=== PATIENT | male | born 1965 | race Caucasian/White ===

== ENCOUNTER 2020-05-25 18:35 | Inpatient (IN) | payer SELFPAY ==
[~2020-05-25] VITALS: Ht 170.2 cm; Wt 95.8 kg
[2020-05-25 21:10] LABS: BASOPHIL % 0.1 % (0-2); RED CELL DISTRIBUTION WIDTH 14.3 % (11.5-14.5)
[2020-05-25 21:15] LABS: PLATELET COUNT 599 x10^3mcL (130-400)
[2020-05-25 21:17] LABS: CALCIUM 8.4 mg/dL (8.5-10.1); CARBON DIOXIDE 21.4 mmol/L (21-32); CHLORIDE SERUM 104 mmol/L (98-107); GFR1 > 60 mL/min; GLUCOSE SERUM 144 mg/dL (74-106); POTASSIUM SERUM 3.7 mmol/L (3.5-5.1); SODIUM SERUM 140 mmol/L (136-145)
[2020-05-25 21:22] LABS: ALKALINE PHOSPHATASE 118 U/L (46-116); ALT/SGPT 108 U/L (16-63); AST/SGOT 71 U/L (15-37); BILIRUBIN TOTAL 0.6 mg/dL (0.20-1.00); TOTAL PROTEIN, SERUM 7.1 g/dL (6.4-8.2)
[2020-05-25 21:23] LABS: ALBUMIN 2.2 g/dL (3.4-5.0)
[2020-05-25 21:24] LABS: C REACTIVE PROTEIN 17.7 mg/dL (<=0.9); LACTIC DEHYDROGENASE (LDH) 678 U/L (100-190)
[2020-05-25 21:41] LABS: MAGNESIUM 1.8 mg/dL (1.8-2.4); PHOSPHOROUS 3.4 mg/dL (2.5-4.9)
[2020-05-25 21:42] LABS: CHOLESTEROL/HDL RATIO 9.5; T3 TOTAL 1.27 ng/mL
[2020-05-25 21:57] LABS: FREE T4 1.64 ng/dL (0.76-1.46); FREE THYROXINE INDEX 3.6 ug/dL (1.4-4.5); T4(THYROXINE) 9.8 ug/dL (4.7-13.3)
[2020-05-25 23:00] LABS: UA SPECIFIC GRAVITY >=1.030 (1.005-1.035); microscopic required? YES; urine erythrocyte NEGATIVE (NEGATIVE)
[2020-05-25 23:24] LABS: AMPHETAMINE QUAL UR NONE DETECTED (See below)
[2020-05-26] VITALS (7 sets, daily range): BP systolic 110–152; BP diastolic 69–88
[2020-05-26 07:52] LABS: BASOPHIL % 0.3 % (0-2)
[2020-05-26 08:15] LABS: CALCIUM 8.7 mg/dL (8.5-10.1); CARBON DIOXIDE 22.4 mmol/L (21-32); CHLORIDE SERUM 107 mmol/L (98-107); CREATININE SERUM 0.8 mg/dL (0.7-1.3); GFR1 > 60 mL/min; GLUCOSE SERUM 104 mg/dL (74-106); MAGNESIUM 2.1 mg/dL (1.8-2.4); SODIUM SERUM 141 mmol/L (136-145)
[2020-05-26 08:16] LABS: RED CELL DISTRIBUTION WIDTH 14.6 % (11.5-14.5)
[2020-05-26 08:22] LABS: C REACTIVE PROTEIN 14.7 mg/dL (<=0.9); PLATELET COUNT 607 x10^3mcL (130-400)
[2020-05-27 06:09] VITALS: BP 123/75
[2020-05-27 07:27] LABS: BASOPHIL % 0.4 % (0-2)
[2020-05-27 07:41] LABS: CALCIUM 8.7 mg/dL (8.5-10.1); CARBON DIOXIDE 24.9 mmol/L (21-32); CHLORIDE SERUM 106 mmol/L (98-107); GFR1 > 60 mL/min; GLUCOSE SERUM 93 mg/dL (74-106); MAGNESIUM 2.1 mg/dL (1.8-2.4); PHOSPHOROUS 4.3 mg/dL (2.5-4.9); POTASSIUM SERUM 4.3 mmol/L (3.5-5.1); SODIUM SERUM 142 mmol/L (136-145)
[2020-05-27 08:31] LABS: PLATELET COUNT 631 x10^3mcL (130-400); RED CELL DISTRIBUTION WIDTH 14.7 % (11.5-14.5)
[2020-05-27 09:02] VITALS: BP 143/85
[2020-05-27 12:18] VITALS: BP 143/88
[2020-05-27 17:01] VITALS: BP 133/80
[2020-05-27 22:17] VITALS: BP 126/68
[2020-05-28 05:59] VITALS: BP 111/69
[2020-05-28 08:03] LABS: C REACTIVE PROTEIN 6.1 mg/dL (<=0.9); CALCIUM 8.5 mg/dL (8.5-10.1); CARBON DIOXIDE 23.5 mmol/L (21-32); CHLORIDE SERUM 107 mmol/L (98-107); CREATININE SERUM 0.9 mg/dL (0.7-1.3); GFR1 > 60 mL/min; GLUCOSE SERUM 104 mg/dL (74-106); PHOSPHOROUS 3.9 mg/dL (2.5-4.9); POTASSIUM SERUM 4.1 mmol/L (3.5-5.1); SODIUM SERUM 141 mmol/L (136-145)
[2020-05-28 08:27] LABS: BASOPHIL % 0.6 % (0-2)
[2020-05-28 08:29] LABS: PLATELET COUNT 583 x10^3mcL (130-400); RED CELL DISTRIBUTION WIDTH 14.6 % (11.5-14.5)
[2020-05-28 08:54] VITALS: BP 129/86
[2020-05-28 11:53] VITALS: BP 124/82
[2020-05-28] MEDS ORDERED: TES100 PO (12:11)
[2020-05-28] MEDS ORDERED: DEC10I IV (12:12)
[2020-05-28] MEDS ORDERED: XARELTO10 M1 PO ×2 (12:37→14:11)
[2020-05-28 13:23] VITALS: BP 124/82
[2020-05-28] MEDS ORDERED: DECADRON6 MG PO (14:14)
== END 2020-05-28 16:30 | disposition home or self-care (01) | DRG 871 ==
LOC: ED 18:35 → DU 19:57
PROVIDERS: Student in an Organized Health Care Education/Training Program; ADMIT Family Medicine; ATTEND Family Medicine
DX: A41.89 Other specified sepsis (principal); J96.01 Acute respiratory failure with hypoxia; J12.89 Other viral pneumonia; U07.1 COVID-19; N17.0 Acute kidney failure with tubular necrosis; E44.0 Moderate protein-calorie malnutrition; E11.65 Type 2 diabetes mellitus with hyperglycemia; R74.0 Nonspecific elevation of levels of transaminase and lactic acid dehydrogenase [LDH]; Z79.899 Other long term (current) drug therapy; Z79.01 Long term (current) use of anticoagulants
CPT/HCPCS: 36600; 82962; 83880; 84439; G0378; J0456; J0696; J1100; J1200; J1610; J1644; J2250; J2310; J3010; J3490; J7030; J7060; Q0092; U0003-CS